=== PATIENT | female | born 1955 | race Caucasian/White ===

== ENCOUNTER → 2018-07-11 | Outpatient (CLI) | payer OTHER | END | disposition home or self-care (01) | LOC: LAB SHORT 14:44 → PLD 14:44 | DX: D22.5 Melanocytic nevi of trunk (principal) | CPT/HCPCS: 88305 ==

== ENCOUNTER → 2024-05-15 | Outpatient (CLI) | payer MEDICARE | LOC: LAB SHORT 19:31 → LAB 19:31 | DX: N39.0 Urinary tract infection, site not specified (principal) | CPT/HCPCS: 87077; 87086; 87186 ==